=== PATIENT | male | born 1985 | race Caucasian/White ===

== ENCOUNTER 2016-08-02 11:40 | Day surgery (SDC) | payer SELFPAY ==
[~2016-08-02 11:40] MED LIST: FLOVENT HFA10.6 GM INH; IBUPROFEN800 M1 PO; PERCOCET 5-3251 EACH PO; PROVENTIL17 GM IH; SINGULAIR10 MG PO; ULTRAM50 M1 PO; VENTOLIN HFA18 G2 INH; VENTOLIN HFA18 GM IH
[2016-08-02 13:21] LABS: ALB/GLOB RATIO 1.2 (0.8-2.0); ALBUMIN 3.6 g/dl (3.5-5.0); ALKALINE PHOSPHATASE 77 U/L (33-138); ALT/SGPT 20 U/L (12-78); ANION GAP 10 mmol/L (0-20); AST/SGOT 17 U/L (10-40); BILIRUBIN,TOTAL 0.6 mg/dl (0.0-1.5); BLOOD UREA NITROGEN 16 mg/dl (6-24); CALCIUM 8.4 mg/dl (8.5-10.5); CARBON DIOXIDE-VENOUS 28 mmol/L (22-32); CHLORIDE 109 mmol/l (96-110); CREATININE 0.88 mg/dl (0.60-1.30); GLUCOSE 95 mg/dL (70-110); POTASSIUM 4.1 mmol/L (3.7-5.1); SODIUM 143 mmol/L (135-145); eGFR VALUE FOR BLACK >90 mL/Min
== END 2016-08-02 18:40 ==
LOC: SHSB 11:40 → ORE 14:03 → PACU 15:38 → SHSB 16:30
PROVIDERS: Orthopaedic Surgery
PROC: 0PS904Z Reposition Right Clavicle with Internal Fixation Device, Open Approach (ICD-10-PCS; principal; 2016-08-02)
DX: S42.001A Fracture of unspecified part of right clavicle, initial encounter for closed fracture (principal); Z79.899 Other long term (current) drug therapy
CPT/HCPCS: C1713; J0171; J0690; J1885; J2270; J2795; J3010